=== PATIENT | female | born 1945 | race Caucasian/White ===

== ENCOUNTER 2016-05-19 12:34 | Emergency (ER) | payer MEDICARE, MEDICAID ==
[~2016-05-19] VITALS: Ht 154.9 cm; Wt 90.0 kg
[2016-05-19 12:35] VITALS: BP 175/90; PULSE 83; RESP 14; TEMP 98; O2SAT 95
--- NOTE | 2016-05-19 13:10 | PD ---
HPI Chief Complaint: Fall Time Seen by Provider: 12:55 Travel History International Travel<30 days: No Contact w/Intl Traveler<30days: No Traveled to known affect area: No History of Present Illness HPI 70-year-old female presents for evaluation after a mechanical fall. She reports that 2 days ago she tripped on the sidewalk and fell, landing on her left side. No head trauma or loss of consciousness. She is complaining of left lower rib cage pain and left upper quadrant abdominal pain. Pain is worse with breathing in, aching pain, partially relieved with Tylenol. She denies any nausea or vomiting, back or neck pain, shortness of breath, injury to the extremities. She does take Plavix and aspirin. No other blood thinners. No other complaints. PFSH Past Medical History Cardiovascular Problems: Yes (open heart sx) Chemotherapy: Yes (magy breast ca) Past Surgical History Hysterectomy: Yes Social History Alcohol Use: No Tobacco Use: No Allergies-Medications (Allergen,Severity, Reaction): Coded Allergies: No Known Allergies (Unverified , 05/19/16) Reported Meds & Prescriptions Reported Meds & Active Scripts Active Zofran (Ondansetron HCl) 4 Mg Tab 4 Mg PO Q6HR PRN Lortab (Hydrocodone-Acetaminophen) 5-325 Mg Tab 1 Tab PO Q6H PRN Reported Dexilant (Dexlansoprazole) 60 Mg Cap 60 Mg PO DAILY Amlodipine (Amlodipine Besylate) 5 Mg Tab 5 Mg PO DAILY Crestor (Rosuvastatin Calcium) 10 Mg Tab 10 Mg PO DAILY Exforge (Amlodipine-Valsartan) 10-320 Mg Tab 1 Tab PO DAILY Aspirin 81 Mg Tabdr 81 Mg PO DAILY Review of Systems Except as stated in HPI: all other systems reviewed are Neg Physical Exam Narrative GENERAL: Well-developed well-nourished female in no acute distress SKIN: Warm and dry. No bruising or ecchymosis. HEAD: Atraumatic. Normocephalic. EYES: Pupils equal and round. No scleral icterus. No injection or drainage. ENT: No nasal bleeding or discharge. Mucous membranes pink and moist. NECK: Trachea midline. No JVD. CARDIOVASCULAR: Regular rate and rhythm. No murmur appreciated. RESPIRATORY: No accessory muscle use. Clear to auscultation. Breath sounds equal bilaterally. GASTROINTESTINAL: Abdomen soft, mild left upper quadrant tenderness without guarding. MUSCULOSKELETAL: No obvious deformities. There is tenderness to palpation to the anterior left lower rib cage. No tenderness to palpation along the cervical thoracic or lumbar midline spine. NEUROLOGICAL: Awake and alert. No obvious cranial nerve deficits. Motor grossly within normal limits. Normal speech. PSYCHIATRIC: Appropriate mood and affect; insight and judgment normal. Data Data Last Documented VS Vital Signs Date Time Temp Pulse Resp B/P Pulse Ox O2 Delivery O2 Flow Rate FiO2 05/19/16 13:14 Room Air 05/19/16 12:35 98.0 83 14 175/[address] Abd/Pel W Iv Contrast(Rout) (05/19/16 13:05) Complete Blood Count With Diff (05/19/16 13:05) Comprehensive Metabolic Panel (05/19/16 13:05) Act Partial Throm Time (Ptt) (05/19/16 13:05) Prothrombin Time / Inr (Pt) (05/19/16 13:05) Iv Access Insert/Monitor (05/19/16 13:05) Ribs, Uni (W/Exp Cxr-Min 3vw) (05/19/16 ) Ct Thorax/ Chest Wo Iv Contras (05/19/16 ) Iohexol 350 Inj (Omnipaque 350 Inj) (05/19/16 14:51) Resp Incentive Spirometry (05/19/16 ) Labs Laboratory Tests Test 05/19/16 13:35 White Blood Count 3.7 TH/MM3 Red Blood Count 4.62 MIL/MM3 Hemoglobin 13.8 GM/DL Hematocrit 41.8 % Mean Corpuscular Volume 90.4 FL Mean Corpuscular Hemoglobin 29.9 PG Mean Corpuscular Hemoglobin 33.0 % Concent Red Cell Distribution Width 13.5 % Platelet Count 172 TH/MM3 Mean Platelet Volume 9.0 FL Neutrophils (%) (Auto) 43.1 % Lymphocytes (%) (Auto) 41.4 % Monocytes (%) (Auto) 13.1 % Eosinophils (%) (Auto) 1.7 % Basophils (%) (Auto) 0.7 % Neutrophils # (Auto) 1.6 TH/MM3 Lymphocytes # (Auto) 1.5 TH/MM3 Monocytes # (Auto) 0.5 TH/MM3 Eosinophils # (Auto) 0.1 TH/MM3 Basophils # (Auto) 0.0 TH/MM3 CBC Comment DIFF FINAL Differential Comment Prothrombin Time 11.2 SEC Prothromb Time International 1.0 RATIO Ratio Activated Partial 26.1 SEC Thromboplast Time Sodium Level 139 MEQ/L Potassium Level 4.4 MEQ/L Chloride Level 105 MEQ/L Carbon Dioxide Level 27.1 MEQ/L Anion Gap 7 MEQ/L Blood Urea Nitrogen 10 MG/DL Creatinine 0.64 MG/DL Estimat Glomerular Filtration 91 ML/MIN Rate Random Glucose 92 MG/DL Calcium Level 9.5 MG/DL Total Bilirubin 0.4 MG/DL Aspartate Amino Transf 14 U/L (AST/SGOT) Alanine Aminotransferase 19 U/L (ALT/SGPT) Alkaline Phosphatase 63 U/L Total Protein 8.1 GM/DL Albumin 3.8 GM/DL [facility] Medical Decision Making Medical Screen Exam Complete: Yes Emergency Medical Condition: Yes Medical Record Reviewed: Yes Interpretation(s) CT abdomen and pelvis CONCLUSION: 1. No acute intra-abdominal trauma. 2. Tiny left pleural effusion. 3. Scattered bibasilar atelectasis and/or fibrotic scarring. 4. Bilateral adrenal prominence consistent with possible adrenal hyperplasia. 5. Uncomplicated sigmoid diverticulosis. 6. Degenerative changes and scoliosis of the thoracolumbar spine. CT thorax CONCLUSION: 1. Minimal left pleural effusion with no evidence of pneumothorax. 2. The subtle nondisplaced rib fracture seen on the plain films is not distinctly visualized on the CT. 3. Status post median sternotomy with postsurgical changes. Differential Diagnosis Rib contusion, rib fracture, pneumothorax, hemothorax, splenic laceration Narrative Course 70-year-old female presents to days after mechanical fall with left anterior lower rib cage/left upper quadrant abdominal pain. Left rib x-ray, basic lab work and CT of the abdomen and pelvis with IV contrast and ordered. The patient is stable. Per radiologist, left rib x-ray reads: "Definite acute fracture involving the anterolateral aspect of the left seventh rib with possible old or new fractures involving the left third, fourth, fifth, sixth, eighth and ninth ribs." Given the significant findings a CT of the thorax has been added on. Unfortunately the patient returned from CT after the x-ray was reviewed by the radiologist wear a CT abdomen and pelvis with IV contrast was performed and per the him tech the patient received full dose of IV contrast and is unable to perform another contrast study at this time. Therefore CT of the thorax without contrast has been ordered. CT of the thorax reveals no obvious acute fractures, but definite fracture of the left seventh rib is not visualized on CT scan per radiologist. There is no evidence of additional fracture to the third, fourth, fifth, sixth, 8, ninth ribs. The patient has been stable during her hospital stay and given the reassuring findings on CT of the thorax the patient is stable for discharge. She will be given an incentive spirometer and prescription for pain medicine, advised follow-up with her primary care physician next week. Discussed signs and symptoms that weren't returning immediately to the emergency room with her and her . She is stable for discharge. Diagnosis Primary Impression: Left rib fracture Qualified Code: S22.32XA - Closed fracture of one rib of left side, initial encounter Additional Instructions: Medication as needed. Do not drive, drink alcohol when taking Lortab. Use the incentive spirometer 10 times an hour while awake. Follow-up with primary care physician next week. Return for new or worsening symptoms such as acute shortness of breath, fevers, deep cough. Med/Other Pt SpecificInfo: Prescription(s) given Scripts Ondansetron (Zofran)4 Mg Tab4 Mg PO Q6HR PRN (NAUSEA OR VOMITING) #20 TAB Ref 0 Prov:Marisa Boo MD 05/19/16 Hydrocodone-Acetaminophen (Lortab)5-325 Mg Tab1 Tab PO Q6H PRN (PAIN) #20 TAB Ref 0 Prov:Marisa Boo MD 05/19/16 Disposition: 01 DISCHARGE HOME Condition: Stable Josias Hernandez May 19, 2016 13:09
[2016-05-19] MEDS ORDERED: ASPI1TAB69 PO (13:14)
[2016-05-19] MEDS ORDERED: AMLO5TAB2 PO (13:14)
[2016-05-19] MEDS ORDERED: EXFO10TA2 PO (13:14)
[2016-05-19] MEDS ORDERED: DEXI60CA PO (13:14)
[2016-05-19] MEDS ORDERED: ROSU10 PO (13:14)
[2016-05-19 13:47] LABS: AUTOMATED NEUTROPHIL # 1.6 TH/MM3 (1.8-7.7); BASOPHIL % 0.7 % (0.0-2.0); EOSINOPHIL # 0.1 TH/MM3 (0-0.4); EOSINOPHIL % 1.7 % (0.0-4.0); HEMATOCRIT 41.8 % (35.0-46.0); HEMO FLAGS DIFF FINAL; LYMPH % 41.4 % (9.0-44.0); LYMPHOCYTE # 1.5 TH/MM3 (1.0-4.8); MEAN CELL VOLUME 90.4 FL (80.0-100.0); MEAN CORPUSCULAR HEMOGLOBIN 29.9 PG (27.0-34.0); MONO % 13.1 % (0.0-8.0); NEUT % 43.1 % (16.0-70.0); PLATELET COUNT 172 TH/MM3 (150-450); RED BLOOD COUNT 4.62 MIL/MM3 (4.00-5.30); RED CELL DISTRIBUTION WIDTH 13.5 % (11.6-17.2); WHITE BLOOD COUNT 3.7 TH/MM3 (4.0-11.0)
[2016-05-19 13:58] LABS: APTT (PATIENT) 26.1 SEC (24.3-30.1); PROTHROMBIN TIME - PATIENT 11.2 SEC (9.8-11.6)
[2016-05-19 14:05] LABS: ALT (GPT) 19 U/L (10-53); ANION GAP 7 MEQ/L (5-15); AST (GOT) 14 U/L (15-37); BICARBONATE 27.1 MEQ/L (21.0-32.0); BLOOD UREA NITROGEN 10 MG/DL (7-18); CHLORIDE 105 MEQ/L (98-107); GLOMERULAR FILTRATION RATE 91 ML/MIN (>89); POTASSIUM 4.4 MEQ/L (3.5-5.1); SODIUM (NA) 139 MEQ/L (136-145)
[2016-05-19 14:07] LABS: ALKALINE PHOSPHATASE 63 U/L (45-117); TOTAL BILIRUBIN ADULT 0.4 MG/DL (0.2-1.0)
--- NOTE | 2016-05-19 14:42 | RADRPT ---
EXAM DATE/TIME: 05/19/2016 14:14 [facility] COMPARISON: No previous studies available for comparison. INDICATIONS : Leg got stuck and fell MEDICAL HISTORY : None. SURGICAL HISTORY : Double mastectomy ENCOUNTER: Initial ACUITY: 2 days PAIN SCORE: 7/10 LOCATION: Left ribs FINDINGS: There is definite acute fracture involving the left seventh rib anterolaterally. Questionable deform ities are also noted involving the left third, fourth, fifth, sixth, eighth and ninth ribs. It is un clear if these represent old or new findings. CONCLUSION: Definite acute fracture involving the anterolateral aspect of the left seventh rib with possible old or new fractures involving the left third, fourth, fifth, sixth, eighth and ninth ribs. Eulogio Reynaga MD on May 19, 2016 at 14:32 Board Certified Radiologist. This report was verified electronically.
[2016-05-19] MEDS ORDERED: IOHEXOL 350 MG/ML 10 ML VIAL (for RAD DIAG) IV ONE (14:51)
--- NOTE | 2016-05-19 15:13 | RADRPT ---
EXAM DATE/TIME: 05/19/2016 14:29 [facility] COMPARISON: No previous studies available for comparison. INDICATIONS : Fall 2 days ago; landed on left side; pain. IV CONTRAST: 95 cc Omnipaque 350 (iohexol) IV ORAL CONTRAST: No oral contrast ingested. RADIATION DOSE: 12.22 CTDIvol (mGy) MEDICAL HISTORY : Carcinoma, breast. SURGICAL HISTORY : Hysterectomy. Cardiac surgery. ENCOUNTER: Initial ACUITY: 2 days PAIN SCALE: 8/10 LOCATION: Left Abdomen/pelvis TECHNIQUE: Volumetric scanning of the abdomen and pelvis was performed. Using automated exposure control and ad justment of the mA and/or kV according to patient size, radiation dose was kept as low as reasonably achievable to obtain optimal diagnostic quality images. FINDINGS: LOWER LUNGS: There is a tiny left pleural effusion. Minimal bibasilar atelectasis and/or fibrotic scarring is note d. LIVER: Homogeneous density without lesion. There is no dilation of the biliary tree. No calcified gallston es. SPLEEN: Normal size without lesion. PANCREAS: Within normal limits. KIDNEYS: Normal in size and shape. There is no mass, stone or hydronephrosis. ADRENAL GLANDS: The adrenal glands are mildly prominent bilaterally suggesting possible adrenal hyperplasia. VASCULAR: There is no aortic aneurysm. BOWEL/MESENTERY: Scattered uncomplicated sigmoid diverticulosis is noted. ABDOMINAL WALL: Within normal limits. RETROPERITONEUM: There is no lymphadenopathy. BLADDER: No wall thickening or mass. REPRODUCTIVE: Within normal limits. INGUINAL: There is no lymphadenopathy or hernia. MUSCULOSKELETAL: Degenerative changes and mild scoliosis of the thoracolumbar spine are noted. CONCLUSION: 1. No acute intra-abdominal trauma. 2. Tiny left pleural effusion. 3. Scattered bibasilar atelectasis and/or fibrotic scarring. 4. Bilateral adrenal prominence consistent with possible adrenal hyperplasia. 5. Uncomplicated sigmoid diverticulosis. 6. Degenerative changes and scoliosis of the thoracolumbar spine. Eulogio Reynaga MD on May 19, 2016 at 14:58 Board Certified Radiologist. This report was verified electronically.
--- NOTE | 2016-05-19 15:20 | RADRPT ---
EXAM DATE/TIME: 05/19/2016 15:03 [facility] COMPARISON: RIBS LEFT(W PA CXR MIN 3VWS), May 19, 2016, 14:14. INDICATIONS : Fall 2 days ago; landed on left side; pain. RADIATION DOSE: 9.59 CTDIvol (mGy) MEDICAL HISTORY : Carcinoma, breast. SURGICAL HISTORY : Hysterectomy. Cardiac surgery ENCOUNTER: Initial ACUITY: 2 days PAIN SCALE: 8/10 LOCATION: Left chest TECHNIQUE: Volumetric scanning of the chest was performed. Using automated exposure control and adjustment of t he mA and/or kV according to patient size, radiation dose was kept as low as reasonably achievable to obtain optimal diagnostic quality images. FINDINGS: LUNGS: There is no consolidation or pneumothorax. No concerning pulmonary nodule is visualized. PLEURAE: There is no pleural thickening or pleural effusion. MEDIASTINUM: Status post median sternotomy with postsurgical changes. Coronary artery calcifications are noted. Th ere is no definite evidence of adenopathy. AXILLAE: Within normal limits. No lymphadenopathy. MUSCULOSKELETAL: Diffuse osteopenia. There are degenerative changes and scoliosis thoracic spine. The definite subtle rib fracture seen on the plain film is not well-visualized on CT. MISCELLANEOUS: The visualized upper abdominal organs demonstrate no acute abnormality. CONCLUSION: 1. Minimal left pleural effusion with no evidence of pneumothorax. 2. The subtle nondisplaced rib fracture seen on the plain films is not distinctly visualized on the C T. 3. Status post median sternotomy with postsurgical changes. Quintin Higginbotham MD on May 19, 2016 at 15:14 Board Certified Radiologist. This report was verified electronically.
[2016-05-19] MEDS ORDERED: HYDR-3533 PO (15:32)
[2016-05-19] MEDS ORDERED: ZOFR4TAB PO (15:32)
== END 2016-05-19 15:57 | disposition home or self-care (01) ==
LOC: NETRI 12:34
DX: S22.32XA Fracture of one rib, left side, initial encounter for closed fracture (principal); R10.12 Left upper quadrant pain; W01.0XXA Fall on same level from slipping, tripping and stumbling without subsequent striking against object, initial encounter; Y93.9 Activity, unspecified; Y92.480 Sidewalk as the place of occurrence of the external cause; Z79.01 Long term (current) use of anticoagulants
CPT/HCPCS: 71101; 71250; 74177; 80053; 85025; 85610; 85730; 99284; Q9967